=== PATIENT | female | born 2000 | race Caucasian/White ===

== ENCOUNTER 2019-11-19 00:01 | Emergency (ER) | payer BC, SELFPAY ==
[2019-11-19 00:26] VITALS: BP 117/79; PULSE 102; RESP 16; TEMP 36.5; O2SAT 98; BMI 25.6
--- NOTE | 2019-11-19 00:54 | ED_ITS ---
Entered by Katerina Reaves, acting as scribe for Cesilia Kong Nov 19, 2019 00:01 HPI - Nausea/Vomiting/Diarrhea General: Chief complaint: Nausea/Vomiting/Diarrhea Stated complaint: NAUSEA Time Seen by Provider: 11/19/19 00:53 Source: patient Mode of arrival: ambulatory History of Present Illness: HPI Narrative: 19y/o female presents to the ED with complaint of N/V since 2015 this evening. Pt denies any sick contacts. She denies any abd pain or cramping. MD elicited complaint: nausea and vomiting Onset (ago): hour(s) Associated abdominal pain: No Severity: mild Exacerbating factors: vomiting and movement Relieving factors: none Associated symtoms: Denies altered mental status, change in vision, chest pain, diaphoresis, dizziness, dysuria, fatigue, headache(s), malaise, palpitations or syncope Review of Systems General: Reports: other (negative unless marked) Const: Denies: fever, chills, body aches, fatigue, malaise or diaphoresis Eyes: Denies: change in vision or blurry vision ENMT: Denies: throat pain, painful swallowing, hoarseness, ear pain, ear discharge, Change in hearing or nasal discharge Card: Denies: chest pain, palpitations, irregular heart rhythm, syncope, pre- syncope, shortness of breath on exertion or shortness of breath when lying down Resp: Denies: shortness of breath, productive cough, non-productive cough, wheezing, coughing up blood or chest congestion : Denies: flank pain, painful urination, urinary frequency, urinary urgency, decreased urine ouput, urinary incontinence or blood in urine Musc: Denies: neck pain, back pain, extremity pain, extremity swelling, joint pain, joint swelling, joint warmth or joint stiffness Skin/Breast: Denies: rash, skin tenderness or yellow skin Neuro: Denies: headache, numbness in extremities, weakness in extremities, changes in sensation, lack of coordination, difficulty walking, dizziness, vertigo or confusion Endo: Denies: excessive thirst, tired all the time, cold intolerance, excessive sweating, flushing or hot flashes Lon/Lymph: Denies: easy bruising, easy bleeding, petechiae or enlarged lymph nodes All/Imm: Denies: hives, throat swelling, tongue swelling, facial swelling or acute wheezing PFSH ED PFSH: Social History Smoking and tobacco status: current some day smoker Female Reproductive History: Date of last menstrual period: 11/03/19 Physical Exam Const: EXAM LIMITATIONS: no altered mental status GENERAL APPEARANCE: cooperative, well kempt and well developed ORIENTATION/CONSCIOUSNESS: Yes awake HENMT: COMMON NORMALS: normocephalic, head/scalp atraumatic, hearing grossly normal bilaterally, external ears normal, EAC's normal, external nose normal and moist oral mucous membranes HEAD & SCALP: normal to inspection, normocephalic and atraumatic FACE & SINUS: normal facial exam and face symmetric NOSE: external nose normal and nares normal EXTERNAL EAR: Yes external ears normal EXTERNAL AUDITORY CANAL: EAC's normal MOUTH: oral and palatal mucosa normal and tongue normal Eye: COMMON NORMALS: PERRL, EOMs intact bilaterally, conjunctivae normal and no scleral icterus GENERAL EYE: normal appearance of both eyes and normal light reflex CONJUNCTIVA: Yes conjunctivae normal SCLERA: sclerae normal CORNEA: Yes corneas normal PUPIL: Yes PERRL DIRECT OPHTHALMOSCOPY: Yes normal light reflex Neck/C-Spine: COMMON NORMALS: full ROM, no lymphadenopathy, supple, no meningeal signs and no JVD GENERAL: Yes normal visual inspection and Yes trachea midline CERVICAL SPINE: Yes cervical ROM normal Chest: COMMONS NORMALS: inspection of chest normal and palpation of chest normal Resp: COMMON NORMALS: normal respiratory effort, no retractions, no use of accessory muscles and clear to auscultation bilaterally EFFORT & INSPECTION: Yes able to speak in complete sentences AUSCULTATION: clear to auscultation bilaterally Cardio: COMMON NORMALS: no JVD, regular rate, regular rhythm, S1 normal heart sound, S2 normal heart sound, no gallops, no clicks, no murmurs and no rub JUGULAR VENOUS DISTENTION: no JVD RATE: regular rate RHYTHM: regular rhythm HEART SOUNDS: S1 normal and S2 normal GI: COMMON NORMALS: soft to palpation, non-tender, no hepatosplenomegaly and no masses INSPECTION: Yes normal to inspection PALPATION: Yes soft and Yes no hepatosplenomegaly : COMMON NORMALS: Yes no CVA tenderness BLADDER/KIDNEY EXAM: Yes no CVA tenderness Back/Pelvis: COMMON NORMALS: no CVA tenderness, thoracic and lumbar spine normal to inspection, no thoracic nor lumbar tenderness and thoraco-lumbar ROM normal Extremity: COMMON NORMALS: normal to inspection, full ROM, normal capillary refill, no joint enlargement, no clubbing, cyanosis or edema and no calf tenderness Neuro: COMMON NORMALS: CN's II-XII intact bilaterally, moves all extremities, no focal motor deficits and no sensory deficits noted MENINGEAL SIGNS: Yes no meningeal signs Psych: COMMON NORMALS: mental status grossly normal, thought process normal, cooperative, affect normal and speech normal APPEARANCE: Yes well kempt SPEECH: Yes normal speech THOUGHT PROCESS: normal thought process Skin: COMMON NORMALS: no rashes or lesions noted, skin turgor normal, no jaundice, no petechiae and no mottling GENERAL SKIN EXAM: no rashes or lesions noted and turgor normal Course Vital Signs: Vital signs: Vital Signs Temperature 97.7 F 11/19/19 00:26 Pulse Rate 95 11/19/19 03:18 Respiratory Rate 16 11/19/19 03:18 Blood Pressure 110/60 11/19/19 03:18 Pulse Oximetry 99 11/19/19 03:18 MDM - Nausea/Vomiting/Diarrhea MDM Narrative: Medical decision making narrative: Veronique is a 19-year-old female who comes in complaining of vomiting. She denies having any other symptoms but later has says she has a mild headache. Her headache is resolved with Tylenol. She only has minimal nausea at this time. She still has no abdominal pain on exam or by subjective complaint. She states she is feeling better and wants to go home. She does agree to return should her symptoms change or worsen. I see no sign of meningitis, appendicitis or other acute life-threatening problem. The patient does agree to return should her symptoms change or worsen. Lab Data: Attestation: I reviewed the patient's lab results. Labs: Lab Results 11/19/19 11/19/19 11/19/19 Range/Units 00:44 00:44 00:44 WBC 8.4 (4.5-13.0) 10^3/ uL RBC 4.54 (4.1-5.3) 10^6/u L Hgb 12.7 (11.5-15.3) g/dL Hct 39.1 (37.0-47.0) % MCV 86.1 (81-99) fL MCH 28.0 (28.0-34.0) pg MCHC 32.5 (30.0-36.0) g/dL RDW 12.6 (12.1-15.1) % Plt Count 267 (130-400) 10^3/c mm MPV 10.5 H (7.4-10.4) fL Neut % (Auto) 74.5 % Lymph % (Auto) 16.7 % Harmon % (Auto) 4.6 % Eos % (Auto) 3.1 % Baso % (Auto) 0.7 % Neut # (Auto) 6.3 (1.8-8.0) 10^3/u L Lymph # (Auto) 1.4 L (1.5-6.5) 10^3/u L Harmon # (Auto) 0.4 (0.2-0.9) 10^3/u L Eos # (Auto) 0.3 (0.0-0.8) 10^3/u L Baso # (Auto) 0.1 (0.0-0.1) 10^3/u L Nucleated RBC % (a uto) 0 % Nucleated RBCs # 0.0 /100WBC Sodium 138 (136-145) mmol/L Potassium 3.7 (3.5-5.1) mmol/L Chloride 104 (98-107) mmol/L Carbon Dioxide 20 L (22-29) mmol/L Anion Gap 17.7 (5-19) BUN 14 (6-20) mg/dL Creatinine 0.5 (0.5-0.9) mg/dL GFR Calculation 157.3 H (90-130) mL/min Glucose 141 H (65-115) mg/dL Calcium 10.0 (8.5-10.5) mg/dL Total Bilirubin 1.3 H (0.15-1.2) mg/dL AST 15 (0-32) U/L ALT 15 (0-33) U/L Alkaline Phosphata se 47 (35-105) IU/L Total Protein 7.6 (6.6-8.7) g/dL Albumin 4.1 (3.5-5.2) g/dL Globulin 3.5 (1.3-4.6) g/dL Lipase 13 (13-60) U/L HCG, Qual Negative (Negative) Urine Color (Yellow) Urine Appearance (CLEAR) Urine pH (5-7) Ur Specific Gravit y (1.005-1.030) Urine Protein (Negative) Urine Glucose (UA) (Normal) Urine Ketones (Negative) Urine Occult Blood (Negative) Urine Nitrate (Negative) Urine Bilirubin (NEGATIVE) Urine Urobilinogen (Negative) mg/dL Ur Leukocyte Kimberly ase (Negative) Urine RBC (0-2) /hpf Urine WBC (0-5) /hpf Ur Squamous Epith Cells (0-5) Amorphous Sediment Urine Bacteria (NONE) Urine Mucus 11/19/19 Range/Units 01:30 WBC (4.5-13.0) 10^3/ uL RBC (4.1-5.3) 10^6/u L Hgb (11.5-15.3) g/dL Hct (37.0-47.0) % MCV (81-99) fL MCH (28.0-34.0) pg MCHC (30.0-36.0) g/dL RDW (12.1-15.1) % Plt Count (130-400) 10^3/c mm MPV (7.4-10.4) fL Neut % (Auto) % Lymph % (Auto) % Harmon % (Auto) % Eos % (Auto) % Baso % (Auto) % Neut # (Auto) (1.8-8.0) 10^3/u L Lymph # (Auto) (1.5-6.5) 10^3/u L Harmon # (Auto) (0.2-0.9) 10^3/u L Eos # (Auto) (0.0-0.8) 10^3/u L Baso # (Auto) (0.0-0.1) 10^3/u L Nucleated RBC % (a uto) % Nucleated RBCs # /100WBC Sodium (136-145) mmol/L Potassium (3.5-5.1) mmol/L Chloride (98-107) mmol/L Carbon Dioxide (22-29) mmol/L Anion Gap (5-19) BUN (6-20) mg/dL Creatinine (0.5-0.9) mg/dL GFR Calculation (90-130) mL/min Glucose (65-115) mg/dL Calcium (8.5-10.5) mg/dL Total Bilirubin (0.15-1.2) mg/dL AST (0-32) U/L ALT (0-33) U/L Alkaline Phosphata se (35-105) IU/L Total Protein (6.6-8.7) g/dL Albumin (3.5-5.2) g/dL Globulin (1.3-4.6) g/dL Lipase (13-60) U/L HCG, Qual (Negative) Urine Color Yellow (Yellow) Urine Appearance Hazy A (CLEAR) Urine pH 7 (5-7) Ur Specific Gravit y 1.015 (1.005-1.030) Urine Protein Neg (Negative) Urine Glucose (UA) Norm (Normal) Urine Ketones 1+ H (Negative) Urine Occult Blood 2+ H (Negative) Urine Nitrate Negative (Negative) Urine Bilirubin Neg (NEGATIVE) Urine Urobilinogen Norm (Negative) mg/dL Ur Leukocyte Kimberly ase Negative (Negative) Urine RBC 0-4 H (0-2) /hpf Urine WBC 0-4 H (0-5) /hpf Ur Squamous Epith Cells 0-4 H (0-5) Amorphous Sediment 1+ Urine Bacteria 1+ H (NONE) Urine Mucus 1+ Discharge Plan Discharge Patient Disposition: Home, Self-Care Clinical Impression: Dehydration Vomiting Qualifiers: Vomiting type: unspecified Vomiting Intractability: non-intractable Nausea presence: with nausea Qualified Code(s): R11.2 - Nausea with vomiting, unspecified Condition: Stable Prescriptions: New Zofran 4 mg tablet 4 mg PO DAILY PRN (Reason: nausea and vomiting) 5 Days RF: 0 Discharge Orders: Discharge Order (Routine); Ordered 11/19/19 Ordered By: Cesilia Kong Referrals: Loraine Mccord MD [Physician] - 1-3 days Discharge Diet: Advance as tolerated Discharge Activity: Increase activity as tolerated Patient Instructions: Gastroenteritis (ED), Abdominal Pain (ED), Vomiting - Adult Activity Restrictions/Additional Instructions: Please return to the ER immediately for any of the signs or symptoms listed on your discharge instruction sheets, worsening/changing of your symptoms, you are not getting better as quickly as expected, or for ANY other cause or concerns. You have been offered further evaluation and care here but have declined. If your symptoms return, you develop abdominal pain, develop fever or any other symptoms please return to the ER immediately for recheck. Discharge Date/Time: 11/19/19 03:19 Coding Level of Care Code ED Biological Plant Operator for Chg Fwd Exam Comprehensive The documentation recorded by the ashlynibJean Paul dunlap Ashley, accurately reflects the service I personally performed and the decisions made by Dilan murrell Eli N Nov 19, 2019 00:01
[2019-11-19 00:55] VITALS: BP 142/89; PULSE 120; RESP 16; O2SAT 100
[2019-11-19 01:05] VITALS: BP 137/85; PULSE 120; RESP 16; O2SAT 100
[2019-11-19 01:14] LABS: Basophils # 0.1 10^3/uL (0.0-0.1); Basophils % 0.7 %; Eosinophils # 0.3 10^3/uL (0.0-0.8); Eosinophils % 3.1 %; Hematocrit 39.1 % (37.0-47.0); Hemoglobin 12.7 g/dL (11.5-15.3); Lymphocytes # 1.4 10^3/uL (1.5-6.5); Lymphocytes % 16.7 %; Mean Corpuscular HGB Conc 32.5 g/dL (30.0-36.0); Mean Corpuscular Volume 86.1 fL (81-99); Mean Platelet Volume 10.5 fL (7.4-10.4); Monocytes # 0.4 10^3/uL (0.2-0.9); Monocytes % 4.6 %; Neutrophils # 6.3 10^3/uL (1.8-8.0); Neutrophils % 74.5 %; Nucleated Red Blood Cells % 0 %; Platelet Count 267 10^3/cmm (130-400); Red Blood Count 4.54 10^6/uL (4.1-5.3); Red Cell Distribution Width 12.6 % (12.1-15.1); White Blood Count 8.4 10^3/uL (4.5-13.0)
[2019-11-19 01:17] LABS: HCG, Serum Qual Negative (Negative)
[2019-11-19 01:21] LABS: Alanine Aminotransferase 15 U/L (0-33); Albumin Level 4.1 g/dL (3.5-5.2); Alkaline Phosphatase 47 IU/L (35-105); Anion Gap 17.7 (5-19); Aspartate Amino Transferase 15 U/L (0-32); Blood Urea Nitrogen 14 mg/dL (6-20); Carbon Dioxide 20 mmol/L (22-29); Chloride 104 mmol/L (98-107); Creatinine Clr Calc Pharmacy 157.1401; Globulin 3.5 g/dL (1.3-4.6); Glomerular Filtration Rate 157.3 mL/min (90-130); Glucose 141 mg/dL (65-115); Lipase 13 U/L (13-60); Potassium 3.7 mmol/L (3.5-5.1); Sodium 138 mmol/L (136-145); Total Bilirubin 1.3 mg/dL (0.15-1.2); Total Protein 7.6 g/dL (6.6-8.7)
[2019-11-19] MEDS: acetaminophen 500 mg Tablet 1000 MG PO (01:26)
[2019-11-19 02:00] VITALS: BP 108/68; PULSE 103; RESP 16; O2SAT 100
[2019-11-19 02:20] LABS: Bilirubin Urine Neg (NEGATIVE); Blood Urine 2+ (Negative); Glucose Urine UA Norm (Normal); Ketones Urine 1+ (Negative); Leukocyte Esterase Urine Negative (Negative); Nitrate Urine Negative (Negative); Protein Urine Neg (Negative); Specific Gravity, Urine 1.015 (1.005-1.030); Urine Appearance Hazy (CLEAR); Urine Color Yellow (Yellow); Urobilinogen Urine Norm (Negative); pH Urine 7 (5-7)
[2019-11-19 02:21] LABS: Bacteria Urine 1+; RBC Urine 0-4 /hpf (0-2); Squamous Epithelial Cell Urine 0-4 (0-5); WBC Urine 0-4 /hpf (0-5)
[2019-11-19 02:22] LABS: Add Urine Culture? No; Amorphous Sediment Urine 1+; Mucus Urine 1+
[2019-11-19 02:30] VITALS: BP 103/59; PULSE 78; RESP 16; O2SAT 99
[2019-11-19] MEDS: metoclopramide 5 mg/mL SDV 2 mL 10 MG IVP (02:45)
[2019-11-19] MEDS: ketorolac 30 mg/mL INJ 10 MG IVP (02:46)
[2019-11-19 03:18] VITALS: BP 110/60; PULSE 95; RESP 16; O2SAT 99
== END 2019-11-19 03:19 | disposition home or self-care (01) ==
PROVIDERS: Emergency Provider Emergency Medicine
DX: E86.0 Dehydration (principal); R11.10 Vomiting, unspecified; F17.200 Nicotine dependence, unspecified, uncomplicated
CPT/HCPCS: 27256; 80053; 81001; 83690; 84703; 85025; 96374; 96375; 99282; 99283; A9270; J1885; J2765

== ENCOUNTER 2019-11-23 10:52 | Emergency (ER) | payer BC, SELFPAY ==
--- NOTE | 2019-11-23 10:53 | XR_ITS ---
WS: [id number] XR chest 2V* [id number] REASON FOR EXAM: cp FINDINGS: The heart and mediastinal interfaces are normal. The chest is similar to March 03, 2018. The lung mcgregor are well aerated no pneumonia, pulmonary edema, pleural effusion, or mass effect. No osseous abnormalities. The hilum and apices are normal. There is no evidence of pneumothorax. XR/XR chest 2V* [id number] IMPRESSION: Negative chest for acute pathology.
--- NOTE | 2019-11-23 10:53 | ECG_ITS ---
Measurements Intervals [place] Rate: 71 P: 56 [place]: 148 QRS: 67 QRSD: 90 T: 74 QT: 361 QTc: 395 SINUS RHYTHM WITH SINUS ARRHYTHMIA INTERPRETATION BASED ON A DEFAULT AGE OF 40 YEARS No previous ECG available for comparison Electronically Signed On 11-23-2019 19:05:57 INSURANCE ACCOUNT ASSISTANT by Grace Zee M.[email or web address]
[2019-11-23 10:57] VITALS: BP 138/82; PULSE 75; RESP 18; TEMP 36.8; O2SAT 98; BMI 26.5
[2019-11-23 11:01] VITALS: PULSE 91; RESP 16; O2SAT 99
--- NOTE | 2019-11-23 11:06 | ED_ITS ---
Entered by Candi Madrigal, acting as scribe for Bubba Martin MD, [facility] [place] Nov 23, 2019 10:52 HPI - Chest Pain General: Chief Complaint: Chest Pain Stated Complaint: CP yesterday-none now Time Seen by Provider: 11/23/19 11:06 Source: patient Mode of arrival: ambulatory Limitations: no limitations History of Present Illness: HPI narrative: 19 yo Female presents to ED with complaint of chest pain and shortness of breath. Pt states that it started about 08:30 yesterday morning. Pt states that it went on through the day yesterday and last night. Pt states that she woke up fine this morning but then had another episode. Pt states that she thinks maybe she had a panic attack. Pt states that she has pain in the center of her chest and it doesn't move. Pt describes the pain as pressure, like someone is sitting on her chest. Pt states that she came in to be checked out because she has a family history of cardiac issues. Pt states that she doesn't have any chest pain at this time. Pt's family states that the patient was in the ED on Wednesday with nausea, confusion, and headache. Pt's family states that patient has felt worse on days that she works. 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 Pt states that on Wednesday she mostly came in because of numbness in her arm. She is concerned about carbon monooxide poisoning. complaint: chest pain Onset (ago): day(s) Timing of current episode: episodic and still present Prior episodes: Yes Onset: during rest Pain location: substernal Pain radiation: none Pain scale (0-10): 0 Quality: heaviness Relieving factors: nothing Exacerbating factors: nothing Associated symptoms: Reports dyspnea; Deny abdominal pain, fever(s), nausea, palpitations or vomiting Review of Systems General: Reports: 10 or more systems reviewed and unremarkable except in HPI and below Const: Denies: fever, chills or body aches Eyes: Denies: change in vision or blurry vision ENMT: Denies: throat pain, enlarged tonsils, painful swallowing, hoarseness, mouth pain or swelling of lips/tongue Card: Reports: chest pain; Denies: palpitations, irregular heart rhythm, edema or swelling of feet/ankles Resp: Reports: shortness of breath; Denies: productive cough or non-productive cough GI: Denies: abdominal pain, nausea or vomiting : Denies: flank pain, difficulty urinating, painful urination, urinary frequency, urinary urgency or urinary hesitancy Musc: Denies: neck pain, back pain or extremity swelling Skin/Breast: Denies: rash, itching or redness Neuro: Denies: headache, numbness in extremities or weakness in extremities Endo: Denies: excessive urination, excessive thirst or tired all the time PFSH ED PFSH: Social History Smoking and tobacco status: former smoker Female Reproductive History: Date of last menstrual period: 11/23/19 Physical Exam Const: COMMON NORMALS: no apparent distress, average body habitus, oriented x3, no limitations, healthy appearing, alert and well nourished HENMT: COMMON NORMALS: normocephalic, head/scalp atraumatic and moist oral mucous membranes HEAD & SCALP: normocephalic and atraumatic Eye: COMMON NORMALS: PERRL, EOMs intact bilaterally, conjunctivae normal and no scleral icterus CONJUNCTIVA: Yes conjunctivae normal PUPIL: Yes PERRL Neck/C-Spine: COMMON NORMALS: full ROM, supple, no meningeal signs, no JVD and no carotid bruits Chest: COMMONS NORMALS: inspection of chest normal and palpation of chest normal Resp: COMMON NORMALS: normal respiratory effort, no retractions, no use of accessory muscles, clear to auscultation bilaterally and percussion normal AUSCULTATION: clear to auscultation bilaterally PERCUSSION: percussion normal Cardio: COMMON NORMALS: no JVD, regular rate, regular rhythm, S1 normal heart sound, S2 normal heart sound, no gallops, no clicks, no murmurs, no rub and peripheral pulses 2+ throughout RATE: regular rate RHYTHM: regular rhythm HEART SOUNDS: S1 normal and S2 normal PERIPHERAL PULSES: pulses 2+ throughout GI: COMMON NORMALS: normal to inspection, nondistended, normoactive bowel sounds, soft to palpation, non-tender, no hepatosplenomegaly, no masses and no bruits PALPATION: Yes soft and Yes no hepatosplenomegaly : COMMON NORMALS: Yes no CVA tenderness BLADDER/KIDNEY EXAM: Yes no CVA tenderness Back/Pelvis: COMMON NORMALS: no CVA tenderness Extremity: COMMON NORMALS: normal to inspection, full ROM, normal capillary refill, no calf tenderness and no pedal edema Neuro: COMMON NORMALS: oriented x3 SENSORIUM/ORIENTATION: Yes alert MENINGEAL SIGNS: Yes no meningeal signs Skin: COMMON NORMALS: no rashes or lesions noted, no wounds, skin turgor normal, no jaundice, no petechiae and no mottling GENERAL SKIN EXAM: no rashes or lesions noted and turgor normal Course Reevaluation(s): Reevaluation #1: Discussed her lab and imaging findings with her. Negative other than an elevated bilirubin. She is uncertain if she has any gallbladder disease although she says she has had some right upper quadrant pain in the past. We will obtain an ultrasound of her gallbladder and reevaluate. She voiced understanding and is in agreement with the plan Time: 13:01 Reevaluation #2: Discussed her ultrasound findings with her. Gallbladder without acute findings. She has fatty liver. Advised for her to discuss with her primary care provider, as she probably will need statins. She voiced understanding. We will discharge her home with no new orders. She was in agreement with this plan. Time: 14:26 Vital Signs: Vital signs: Vital Signs Temperature 98.2 F 11/23/19 10:57 Pulse Rate 75 11/23/19 10:57 Respiratory Rate 18 11/23/19 10:57 Blood Pressure 138/82 11/23/19 10:57 Pulse Oximetry 98 11/23/19 10:57 MDM - Chest Pain MDM Narrative: Medical decision making narrative: 19-year-old female patient who presented with chest pain today. She says her symptoms are only there when she is at work. She was concerned about carbon monoxide poisoning. Her carboxyhemoglobin here is normal. Evaluation unremarkable including negative high-sensitivity troponin x2. She is discharged home with no new orders. Lab Data: Labs: Lab Results 11/23/19 11/23/19 11/23/19 Range/Units 11:33 11:39 11:39 WBC 7.3 (4.5-13.0) 10^3/ uL RBC 4.79 (4.1-5.3) 10^6/u L Hgb 13.7 (11.5-15.3) g/dL Hct 41.0 (37.0-47.0) % MCV 85.6 (81-99) fL MCH 28.6 (28.0-34.0) pg MCHC 33.4 (30.0-36.0) g/dL RDW 12.8 (12.1-15.1) % Plt Count 309 (130-400) 10^3/c mm MPV 10.5 H (7.4-10.4) fL Neut % (Auto) 60.3 % Lymph % (Auto) 25.8 % Lassen % (Auto) 6.0 % Eos % (Auto) 6.7 % Baso % (Auto) 0.8 % Neut # (Auto) 4.4 (1.8-8.0) 10^3/u L Lymph # (Auto) 1.9 (1.5-6.5) 10^3/u L Lassen # (Auto) 0.4 (0.2-0.9) 10^3/u L Eos # (Auto) 0.5 (0.0-0.8) 10^3/u L Baso # (Auto) 0.1 (0.0-0.1) 10^3/u L Nucleated RBC % (a uto) 0 % Nucleated RBCs # 0.0 /100WBC D-Dimer 0.55 (0-0.59) ug/mIFE U Specimen Type Arterial Sample Site Radial, left Con Test Pos A-a O2 Gradient 4.1 L (5-10) mmHg Hematocrit 43.1 (37-47) % Hgb O2 Saturation 98.4 (95-100) % Carboxyhemoglobin 0.4 (0.4-20.1) %THgb Methemoglobin 0.3 L (0.4-1.5) % Total Hemoglobin 14.1 (12-16) g/dL O2 Delivery Device Room air Cargo Supervisor ID [id number] Sodium (136-145) mmol/L Potassium (3.5-5.1) mmol/L Chloride (98-107) mmol/L Carbon Dioxide (22-29) mmol/L Anion Gap (5-19) BUN (6-20) mg/dL Creatinine (0.5-0.9) mg/dL GFR Calculation (90-130) mL/min Glucose (65-115) mg/dL Calcium (8.5-10.5) mg/dL Total Bilirubin (0.15-1.2) mg/dL AST (0-32) U/L ALT (0-33) U/L Alkaline Phosphata se (35-105) IU/L Troponin T Baselin e (0-10) ng/mL Troponin T 120 Min [place] (0-10) ng/mL Delta Troponin T (0-10) ABS# Total Protein (6.6-8.7) g/dL Albumin (3.5-5.2) g/dL Globulin (1.3-4.6) g/dL 11/23/19 11/23/19 11/23/19 Range/Units 11:39 11:39 13:45 WBC (4.5-13.0) 10^3/ uL RBC (4.1-5.3) 10^6/u L Hgb (11.5-15.3) g/dL Hct (37.0-47.0) % MCV (81-99) fL MCH (28.0-34.0) pg MCHC (30.0-36.0) g/dL RDW (12.1-15.1) % Plt Count (130-400) 10^3/c mm MPV (7.4-10.4) fL Neut % (Auto) % Lymph % (Auto) % Lassen % (Auto) % Eos % (Auto) % Baso % (Auto) % Neut # (Auto) (1.8-8.0) 10^3/u L Lymph # (Auto) (1.5-6.5) 10^3/u L Lassen # (Auto) (0.2-0.9) 10^3/u L Eos # (Auto) (0.0-0.8) 10^3/u L Baso # (Auto) (0.0-0.1) 10^3/u L Nucleated RBC % (a uto) % Nucleated RBCs # /100WBC D-Dimer (0-0.59) ug/mIFE U Specimen Type Sample Site Con Test A-a O2 Gradient (5-10) mmHg Hematocrit (37-47) % Hgb O2 Saturation (95-100) % Carboxyhemoglobin (0.4-20.1) %THgb Methemoglobin (0.4-1.5) % Total Hemoglobin (12-16) g/dL O2 Delivery Device Cargo Supervisor ID Sodium 141 (136-145) mmol/L Potassium 3.9 (3.5-5.1) mmol/L Chloride 104 (98-107) mmol/L Carbon Dioxide 24 (22-29) mmol/L Anion Gap 16.9 (5-19) BUN 8 (6-20) mg/dL Creatinine 0.5 (0.5-0.9) mg/dL GFR Calculation 157.3 H (90-130) mL/min Glucose 107 (65-115) mg/dL Calcium 10.1 (8.5-10.5) mg/dL Total Bilirubin 1.6 H (0.15-1.2) mg/dL AST 13 (0-32) U/L ALT 13 (0-33) U/L Alkaline Phosphata se 51 (35-105) IU/L Troponin T Baselin e 6 (0-10) ng/mL Troponin T 120 Min [place] 6.00 (0-10) ng/mL Delta Troponin T 0 (0-10) ABS# Total Protein 7.5 (6.6-8.7) g/dL Albumin 4.5 (3.5-5.2) g/dL Globulin 3.0 (1.3-4.6) g/dL Imaging Data^: CXR: Radiologist's impression: [address] [address] XRay Report Signed Patient: Veronique Padilla #: [id number] : 2000Acct#:[id number] Age/Sex: 19 FADM Date: 11/23/19 Loc: ERRoom/Bed: Attending Dr: Ordering Provider/Ordering MD: Carlos Crane MD Date of Service: 11/23/19 Procedure(s): XR chest 2V* 15763 Accession Number(s): [id number] Report Number: [id number] WS: [id number] XR chest 2V* [id number] REASON FOR EXAM: cp FINDINGS: The heart and mediastinal interfaces are normal. The chest is similar to March 03, 2018. The lung mcgregor are well aerated no pneumonia, pulmonary edema, pleural effusion, or mass effect. No osseous abnormalities. The hilum and apices are normal. There is no evidence of pneumothorax. XR/XR chest 2V* [id number] IMPRESSION: Negative chest for acute pathology. Dictated By:Rashad Turpin DO Signed By:Rashad Turpin DOSigned Date/Time:11/23/19 1133 DD/ 1132 US Gallbladder: Radiologist's impression: [address] [address] Ultrasound Report Signed Patient: Veronique Padilla #: [id number] : 2000Acct#:[id number] Age/Sex: Date: 11/23/19 Loc: ERRoom/Bed: Attending Dr: Ordering Provider/Ordering MD: Bubba Martin MD, [facility] [place] of Service: 11/23/19 Procedure(s): US gall bladder 78364 Accession Number(s): [id number] Report Number: [id number] WS: [id number] ABDOMINAL ULTRASOUND LIMITED REASON FOR VISIT: hyperbilirubinemia TECHNIQUE: Grayscale and Doppler ultrasound examination of the abdomen. FINDINGS: Pancreas: Within normal limits. Abdominal aorta and IVC: Normal limits. Liver: Liver measures 12.7 cm in length. Fatty infiltration present Gallbladder: Gallbladder wall thickness measures 2.2 mm. No stones or polyps. Common bile duct measures 0.24 cm no stones. Right kidney: Right kidney measures 11.5 cm x 4.2 cm x 4.8 cm. Right kidney cortex measures 1.4 cm. No hydronephrosis or stones. US/US gall bladder [id number] IMPRESSION: Fatty infiltration of the liver The remaining right upper quadrant within normal limits. Dictated By:Rashad Turpin DO Signed By:Rashad Turpin DOSigned Date/Time:11/23/19 1349 DD/ 1346 EKG Data^: EKG 1: Attestation: I personally reviewed and interpreted this EKG as follows: EKG interpretation date: 11/23/19 Prior EKG tracings: not available for review Interpretation: Sinus rhythm with sinus arrhythmia. Heart rate 71 bpm. Normal axis. No ST changes. EKG 2: Attestation: I personally reviewed and interpreted this EKG as follows: EKG interpretation date: 11/23/19 EKG interpretation time: 13:54 Prior EKG tracings: available for review Interpretation: No changes compared to this morning Discharge Plan Discharge Patient Disposition: Home, Self-Care Clinical Impression: Fatty liver Chest pain Qualifiers: Chest pain type: other chest pain Qualified Code(s): R07.89 - Other chest pain Condition: Stable Prescriptions: Continued Xulane 150-35 mcg/24 hr patch weekly 1 patch transdermal Q7D RF: 0 Discharge Orders: Discharge Order (Routine); Ordered 11/23/19 Ordered By: Bubba Martin Referrals: , [Primary Care Provider] - 1-3 days Patient Instructions: Chest Pain (ED), Non-Alcoholic Fatty Liver Disease (ED) Activity Restrictions/Additional Instructions: Return for any new or worsening symptoms. Follow-up with your primary care provider within 1 week for evaluation. You may need to be started on cholesterol medicine for the fatty liver. Stand Alone Forms: Work/School Release Coding Level of Care Code ED Weighbridge Operator for Chg Fwd Exam Comprehensive The documentation recorded by the Kaitlin beltre Carmen, accurately reflects the service I personally performed and the decisions made by , Bubba Martin MD, [facility] [place] Nov 23, 2019 10:52
[2019-11-23 11:47] LABS: Alveolar-Arterial Oxygen Gradi 4.1 mmHg (5-10); Arterial Blood Gas Hematocrit 43.1 % (37-47); Blood Gas Allen Test Pos; Blood Gas Sample Site Radial, left; Blood Gas Sample Type Arterial; Carboxyhemoglobin 0.4 %THgb (0.4-20.1); HGB O2 Sat 98.4 % (95-100); Methemoglobin 0.3 % (0.4-1.5); Oxygen Device ROOM AIR; Total Hemoglobin 14.1 g/dL (12-16)
[2019-11-23 11:50] LABS: Basophils # 0.1 10^3/uL (0.0-0.1); Basophils % 0.8 %; Eosinophils # 0.5 10^3/uL (0.0-0.8); Eosinophils % 6.7 %; Hemoglobin 13.7 g/dL (11.5-15.3); Lymphocytes # 1.9 10^3/uL (1.5-6.5); Lymphocytes % 25.8 %; Mean Corpuscular HGB Conc 33.4 g/dL (30.0-36.0); Mean Corpuscular Hemoglobin 28.6 pg (28.0-34.0); Mean Corpuscular Volume 85.6 fL (81-99); Mean Platelet Volume 10.5 fL (7.4-10.4); Monocytes # 0.4 10^3/uL (0.2-0.9); Neutrophils # 4.4 10^3/uL (1.8-8.0); Neutrophils % 60.3 %; Nucleated Red Blood Cells % 0 %; Platelet Count 309 10^3/cmm (130-400); Red Blood Count 4.79 10^6/uL (4.1-5.3); Red Cell Distribution Width 12.8 % (12.1-15.1); White Blood Count 7.3 10^3/uL (4.5-13.0)
[2019-11-23 12:01] VITALS: PULSE 103; RESP 16; O2SAT 98
[2019-11-23 12:01] LABS: D Dimer 0.55 ug/mIFEU (0-0.59)
[2019-11-23 12:07] LABS: Troponin(5th) Baseline 6 ng/mL (0-10)
[2019-11-23 12:09] LABS: Alanine Aminotransferase 13 U/L (0-33); Albumin Level 4.5 g/dL (3.5-5.2); Alkaline Phosphatase 51 IU/L (35-105); Anion Gap 16.9 (5-19); Aspartate Amino Transferase 13 U/L (0-32); Blood Urea Nitrogen 8 mg/dL (6-20); Calcium 10.1 mg/dL (8.5-10.5); Carbon Dioxide 24 mmol/L (22-29); Chloride 104 mmol/L (98-107); Glomerular Filtration Rate 157.3 mL/min (90-130); Glucose 107 mg/dL (65-115); Potassium 3.9 mmol/L (3.5-5.1); Sodium 141 mmol/L (136-145); Total Bilirubin 1.6 mg/dL (0.15-1.2); Total Protein 7.5 g/dL (6.6-8.7)
--- NOTE | 2019-11-23 12:59 | US_ITS ---
WS: [id number] ABDOMINAL ULTRASOUND LIMITED REASON FOR VISIT: hyperbilirubinemia TECHNIQUE: Grayscale and Doppler ultrasound examination of the abdomen. FINDINGS: Pancreas: Within normal limits. Abdominal aorta and IVC: Normal limits. Liver: Liver measures 12.7 cm in length. Fatty infiltration present Gallbladder: Gallbladder wall thickness measures 2.2 mm. No stones or polyps. Common bile duct measures 0.24 cm no stones. Right kidney: Right kidney measures 11.5 cm x 4.2 cm x 4.8 cm. Right kidney cortex measures 1.4 cm. N o hydronephrosis or stones. US/US gall bladder 54941 IMPRESSION: Fatty infiltration of the liver The remaining right upper quadrant within normal limits.
[2019-11-23 13:01] VITALS: PULSE 81; RESP 18; O2SAT 100
--- NOTE | 2019-11-23 13:22 | ECG_ITS ---
Measurements Intervals [place] Rate: 68 P: 59 WV: 155 QRS: 68 QRSD: 93 T: 72 QT: 397 QTc: 424 SINUS RHYTHM WITH SINUS ARRHYTHMIA No previous ECG available for comparison Electronically Signed On 11-23-2019 19:12:47 EQUIPMENT OPERATOR WAGE HAND by Grace Zee M.D. [email or web address]
[2019-11-23 14:17] LABS: Troponin 5 2HR Delta 0 ABS# (0-10)
[2019-11-23 15:36] VITALS: BP 128/88; PULSE 84; RESP 16; TEMP 36.9; O2SAT 96
== END 2019-11-23 15:20 | disposition home or self-care (01) ==
PROVIDERS: Emergency Provider Family Medicine
DX: K76.0 Fatty (change of) liver, not elsewhere classified (principal); R07.9 Chest pain, unspecified; Z87.891 Personal history of nicotine dependence; Z82.49 Family history of ischemic heart disease and other diseases of the circulatory system
CPT/HCPCS: 36415; 36600; 71046; 76705; 80053; 82810; 84484; 85025; 85378; 93005; 99282; 99284

== ENCOUNTER 2020-03-06 08:22 | Emergency (ER) | payer BC, SELFPAY ==
[2020-03-06 08:30] VITALS: BP 128/78; PULSE 93; RESP 16; TEMP 37.1; O2SAT 98; BMI 25.6
--- NOTE | 2020-03-06 08:49 | ED_ITS ---
HPI - Abdominal Pain General: Chief Complaint: Abdominal Pain Stated Complaint: n/v/d Time Seen by Provider: 03/06/20 08:26 Source: patient Mode of arrival: ambulatory Limitations: no limitations History of Present Illness: HPI narrative: Patient comes in today for complaints of nausea and vomiting. Patient states that for the last 3 to 4 weeks she has had some right quadrant abdominal pain. Patient felt that it was her gallbladder. Patient states for the last 3 to 4 days she has woke up in the morning vomiting. Today she had to come in due to nausea vomiting and diarrhea worse for last 2 days. Patient appears mildly unwell. Patient appears in no pain at rest. MD elicited complaint: abdominal pain Associated Symptoms: Reports diarrhea, nausea and vomiting Related Data: Date of Last Menstrual Period: 02/06/20 Review of Systems General: Reports: 10 or more systems reviewed and unremarkable except in HPI and below GI: Reports: abdominal pain, nausea, vomiting and diarrhea PFS ED PFSH: Social History Smoking and tobacco status: never smoked Female Reproductive History: Date of last menstrual period: 02/06/20 Physical Exam Const: COMMON NORMALS: no acute distress and patient oriented x3 GENERAL APPEARANCE: cooperative HENMT: COMMON NORMALS: normocephalic, TM's normal bilaterally and Normal external nose present HEAD & SCALP: normal to inspection and normocephalic NOSE: Normal external nose present TYMPANIC MEMBRANE: TM's normal bilaterally MOUTH: Normal oral and palatal mucosa present THROAT: posterior oropharynx normal Eye: GENERAL EYE: appearance normal, both eyes and all related structures Neck/C-Spine: COMMON NORMALS: full ROM Lymph: LYMPHATIC: no lymphadenopathy noted Chest: COMMONS NORMALS: normal inspection of the chest Resp: COMMON NORMALS: normal respiratory effort EFFORT & INSPECTION: Yes able to speak in complete sentences Cardio: COMMON NORMALS: regular rate and regular rhythm RATE: regular rate RHYTHM: regular rhythm GI: COMMON NORMALS: Soft to palpation PALPATION: Yes Soft to palpation, Yes Tenderness to palpation present (GI) Details: RLQ, No Guarding due to palpation present (GI) and No Rebound tenderness present : COMMON NORMALS: Yes no CVA tenderness BLADDER/KIDNEY EXAM: Yes no CVA tenderness Back/Pelvis: COMMON NORMALS: no CVA tenderness and thoracic and lumbar spine normal to inspection Extremity: COMMON NORMALS: normal to inspection Neuro: COMMON NORMALS: patient oriented x3 and moves all extremities Psych: COMMON NORMALS: mental status grossly normal and cooperative Skin: COMMON NORMALS: no rashes or lesions noted GENERAL SKIN EXAM: no rashes or lesions noted Course ED course: 1040, ultrasound report showed that appendix was noncompressible which may be suggestive of a early appendicitis, patient was notified and we will send to CT for further evaluation. Patient reports understanding and agreed to plan. Vital Signs: Vital signs: Vital Signs Temperature 98.7 F 03/06/20 08:30 Pulse Rate 82 03/06/20 09:38 Respiratory Rate 16 03/06/20 08:30 Blood Pressure 101/71 03/06/20 09:38 Pulse Oximetry 100 03/06/20 09:38 MDM - Abdominal Pain MDM Narrative: Medical decision making narrative: Patient comes in today for right lower quadrant/abdominal pain. Patient states pains been on and off for the last 3 to 4 weeks, patient said over the last 2 to 3 days she has had worsening pain and episodes of nausea and vomiting. Patient denies fever. Exam notes right lower quadrant abdominal tenderness. Bowel sounds active. Differential diagnosis includes appendicitis, cholecystitis, gastroenteritis, urinary tract infection, renal calculi, or ovarian cyst. Laboratory values were significant for some mild hypokalemia with a 3.4 level. Remainder of the labs were insignificant. Ultrasound noticed a noncompressible appendix but without other signs of infection. CT scan was then performed and noted no appendicitis but did note a right ovarian cyst. Reviewed exam with patient with recommendations for treatment and follow-up. Patient reported understanding. Lab Data: Labs: Lab Results 03/06/20 03/06/20 03/06/20 Range/Units 08:45 08:45 08:45 WBC 7.5 (4.5-13.0) 10^3/ uL RBC 4.74 (4.1-5.3) 10^6/u L Hgb 13.7 (11.5-15.3) g/dL Hct 41.9 (37.0-47.0) % MCV 88.4 (81-99) fL MCH 28.9 (28.0-34.0) pg MCHC 32.7 (30.0-36.0) g/dL RDW 12.6 (12.1-15.1) % Plt Count 252 (130-400) 10^3/c mm MPV 10.5 H (7.4-10.4) fL Neut % (Auto) 58.9 % Lymph % (Auto) 22.7 % Randall % (Auto) 6.3 % Eos % (Auto) 10.5 % Baso % (Auto) 1.3 % Neut # (Auto) 4.4 (1.8-8.0) 10^3/u L Lymph # (Auto) 1.7 (1.5-6.5) 10^3/u L Randall # (Auto) 0.5 (0.2-0.9) 10^3/u L Eos # (Auto) 0.8 (0.0-0.8) 10^3/u L Baso # (Auto) 0.1 (0.0-0.1) 10^3/u L Nucleated RBC % (a uto) 0 % Nucleated RBCs # 0.0 /100WBC Sodium 141 (136-145) mmol/L Potassium 3.4 L (3.5-5.1) mmol/L Chloride 105 (98-107) mmol/L Carbon Dioxide 21 L (22-29) mmol/L Anion Gap 18.4 (5-19) BUN 13 (6-20) mg/dL Creatinine 0.5 (0.5-0.9) mg/dL GFR Calculation 157.3 H (90-130) mL/min Glucose 93 (65-115) mg/dL Calculated Osmolal ity 288 (285-295) mOsm/k g Calcium 10.2 (8.5-10.5) mg/dL Total Bilirubin 1.9 H (0.15-1.2) mg/dL AST 11 (0-32) U/L ALT 12 (0-33) U/L Alkaline Phosphata se 40 (35-105) IU/L Total Protein 7.5 (6.6-8.7) g/dL Albumin 4.5 (3.5-5.2) g/dL Globulin 3.0 (1.3-4.6) g/dL Lipase 18 (13-60) U/L Urine Color (Yellow) Urine Appearance (CLEAR) Urine pH (5-7) Ur Specific Gravit y (1.005-1.030) Urine Protein (Negative) Urine Glucose (UA) (Normal) Urine Ketones (Negative) Urine Blood (Negative) Urine Nitrate (Negative) Urine Bilirubin (NEGATIVE) Urine Urobilinogen (Negative) mg/dL Ur Leukocyte Kimberly ase (Negative) Urine HCG, Qual Negative (Negative) 03/06/20 Range/Units 08:45 WBC (4.5-13.0) 10^3/ uL RBC (4.1-5.3) 10^6/u L Hgb (11.5-15.3) g/dL Hct (37.0-47.0) % MCV (81-99) fL MCH (28.0-34.0) pg MCHC (30.0-36.0) g/dL RDW (12.1-15.1) % Plt Count (130-400) 10^3/c mm MPV (7.4-10.4) fL Neut % (Auto) % Lymph % (Auto) % Randall % (Auto) % Eos % (Auto) % Baso % (Auto) % Neut # (Auto) (1.8-8.0) 10^3/u L Lymph # (Auto) (1.5-6.5) 10^3/u L Randall # (Auto) (0.2-0.9) 10^3/u L Eos # (Auto) (0.0-0.8) 10^3/u L Baso # (Auto) (0.0-0.1) 10^3/u L Nucleated RBC % (a uto) % Nucleated RBCs # /100WBC Sodium (136-145) mmol/L Potassium (3.5-5.1) mmol/L Chloride (98-107) mmol/L Carbon Dioxide (22-29) mmol/L Anion Gap (5-19) BUN (6-20) mg/dL Creatinine (0.5-0.9) mg/dL GFR Calculation (90-130) mL/min Glucose (65-115) mg/dL Calculated Osmolal ity (285-295) mOsm/k g Calcium (8.5-10.5) mg/dL Total Bilirubin (0.15-1.2) mg/dL AST (0-32) U/L ALT (0-33) U/L Alkaline Phosphata se (35-105) IU/L Total Protein (6.6-8.7) g/dL Albumin (3.5-5.2) g/dL Globulin (1.3-4.6) g/dL Lipase (13-60) U/L Urine Color Yellow (Yellow) Urine Appearance Clear (CLEAR) Urine pH 5.0 (5-7) Ur Specific Gravit y 1.030 (1.005-1.030) Urine Protein Neg (Negative) Urine Glucose (UA) Norm (Normal) Urine Ketones 2+ H (Negative) Urine Blood Neg (Negative) Urine Nitrate Negative (Negative) Urine Bilirubin 1+ H (NEGATIVE) Urine Urobilinogen Norm (Negative) mg/dL Ur Leukocyte Kimberly ase Negative (Negative) Urine HCG, Qual (Negative) Discharge Plan Discharge Patient Disposition: Home, Self-Care Clinical Impression: Abdominal pain Qualifiers: Abdominal location: right lower quadrant Qualified Code(s): R10.31 - Right lower quadrant pain Ovarian cyst Qualifiers: Laterality: right Qualified Code(s): N83.201 - Unspecified ovarian cyst, right side Condition: Stable Prescriptions: New naproxen 500 mg tablet 500 mg PO BID PRN (Reason: pain) Qty: 20 RF: 0 ondansetron HCl 4 mg tablet 4 mg PO Q8H PRN (Reason: nausea and vomiting) Qty: 7 RF: 0 No Action Xulane 150-35 mcg/24 hr patch weekly 1 patch transdermal Q7D RF: 0 Discharge Orders: Discharge Order (Routine); Ordered 03/06/20 Ordered By: Kit Oliva Discharge Diet: Usual diet Discharge Activity: Increase activity as tolerated Patient Instructions: Abdominal Pain (ED) Activity Restrictions/Additional Instructions: Drink plenty of fluids. Activity as tolerated. Use ice or heat to the area for further pain relief. Use acetaminophen for further pain relief. Use naproxen as directed for ovarian pain. Drink plenty of water with medication. Follow-up with primary care or PROGRAMMER OPERATOR NUMERICAL CONTROL in 1 week for recheck on pain and further treatment as recommended. Return to the ER for high fever or worsening symptoms. Coding Level of Care Code ED Fairing Worker for Luisg Fwd Exam Comprehensive
[2020-03-06 08:57] LABS: Add Urine Microscopic? NO
[2020-03-06 08:59] LABS: Basophils # 0.1 10^3/uL (0.0-0.1); Basophils % 1.3 %; Eosinophils # 0.8 10^3/uL (0.0-0.8); Eosinophils % 10.5 %; Hematocrit 41.9 % (37.0-47.0); Hemoglobin 13.7 g/dL (11.5-15.3); Lymphocytes # 1.7 10^3/uL (1.5-6.5); Lymphocytes % 22.7 %; Mean Corpuscular HGB Conc 32.7 g/dL (30.0-36.0); Mean Corpuscular Hemoglobin 28.9 pg (28.0-34.0); Mean Corpuscular Volume 88.4 fL (81-99); Mean Platelet Volume 10.5 fL (7.4-10.4); Monocytes # 0.5 10^3/uL (0.2-0.9); Monocytes % 6.3 %; Neutrophils # 4.4 10^3/uL (1.8-8.0); Neutrophils % 58.9 %; Nucleated Red Blood Cells % 0 %; Platelet Count 252 10^3/cmm (130-400); Red Blood Count 4.74 10^6/uL (4.1-5.3); Red Cell Distribution Width 12.6 % (12.1-15.1); White Blood Count 7.5 10^3/uL (4.5-13.0)
[2020-03-06] MEDS: ondansetron 2 mg/ML SDV 2 mL 4 MG IVP (08:59)
[2020-03-06] MEDS: sodium chloride 0.9% 1,000 ML 999 ML IV (08:59)
[2020-03-06 09:02] LABS: Bilirubin Urine 1+ (NEGATIVE); Blood Urine Neg (Negative); Glucose Urine UA Norm (Normal); Ketones Urine 2+ (Negative); Leukocyte Esterase Urine Negative (Negative); Nitrate Urine Negative (Negative); Protein Urine Neg (Negative); Urine Appearance Clear (CLEAR); Urine Color Yellow (Yellow); Urobilinogen Urine Norm (Negative)
[2020-03-06 09:18] LABS: Alanine Aminotransferase 12 U/L (0-33); Albumin Level 4.5 g/dL (3.5-5.2); Alkaline Phosphatase 40 IU/L (35-105); Anion Gap 18.4 (5-19); Aspartate Amino Transferase 11 U/L (0-32); Blood Urea Nitrogen 13 mg/dL (6-20); Calcium 10.2 mg/dL (8.5-10.5); Carbon Dioxide 21 mmol/L (22-29); Chloride 105 mmol/L (98-107); Creatinine Clr Calc Pharmacy 157.1401; Glomerular Filtration Rate 157.3 mL/min (90-130); Glucose 93 mg/dL (65-115); Lipase 18 U/L (13-60); Osmolality Calculated 288 mOsm/kg (285-295); Potassium 3.4 mmol/L (3.5-5.1); Sodium 141 mmol/L (136-145); Total Bilirubin 1.9 mg/dL (0.15-1.2); Total Protein 7.5 g/dL (6.6-8.7)
--- NOTE | 2020-03-06 09:20 | US_ITS ---
WS: [id number] ABDOMINAL ULTRASOUND LIMITED REASON FOR VISIT: right side abd pain TECHNIQUE: Grayscale and Doppler ultrasound examination of the abdomen. FINDINGS: Pancreas: Normal Abdominal aorta and IVC: Normal Liver: Liver measures 13.9 cm in length. Normal hepatopedal portal circulation. Gallbladder: Gallbladder wall thickness measures 0.2 mm. No stones. The common bile duct measured 0.3 3 cm. Right kidney: Right kidney measures 11.1 cm x 4.2 cm x 3.8 cm. Right kidney cortex measures 1.3 cm. N o hydronephrosis no stones The appendix is identified and is noncompressible and is tender. No periappendiceal fluid is seen. US/US abdomen limited [id number] IMPRESSION: The right upper quadrant ultrasound is normal. The appendix is visualized slightly distended and tender no other evidence of i nflammatory changes.
[2020-03-06] MEDS: metoclopramide 5 mg/mL SDV 2 mL 10 MG IVP (09:35)
[2020-03-06 09:38] VITALS: BP 101/71; PULSE 82; O2SAT 100
--- NOTE | 2020-03-06 09:38 | PC.NURSE ---
portable ultrasound at bedside
--- NOTE | 2020-03-06 10:06 | PC.NURSE ---
pt nausea much improved after last anti-emetic medication administration
--- NOTE | 2020-03-06 10:42 | CT_ITS ---
WS: [id number] CT abdomen pelvis w con* [id number] REASON FOR EXAM: right lower quad pain, concern appendicitis IV CONTRAST ADMINISTERED: Omnipaque 300 95 mL TOTAL EXAM DLP: 522.[address] scans at [facility] use at least one of these dose optimization techniques: automat ed exposure control; mA and/or kV adjustment per patient size (includes targeted exams where dose is matched to clinical indication); or iterative reconstruction. FINDINGS: The lower lung mcgregor were normal. The liver show normal appearance with normal enhancement. The gallbladder was normal no stones are seen. The pancreas showed normal appearance. The spleen was of normal size show normal appearance. The stomach was normal. Both kidneys were within normal limits. No masses hydronephrosis or stones. The cecum and ascending colon were normal the appendix was normal not distended. The small bowel patterns were normal Left: Show normal appearance The uterus was of normal size or is fluid in the cul-de-sac area and there is a 4.4 cm cystic lesion in the right ovary. The rectosigmoid was normal. The lumbar pelvis bony structures were normal as well as the lumbar spine. CT/CT abdomen pelvis w con* [id number] IMPRESSION: Normal appendix The right ovarian cyst Para appendiceal fluid is seen on the right extends in the cul-de-sac.
[2020-03-06] MEDS: iohexol 300 mg/mL 100 mL Btl IV (11:38)
--- NOTE | 2020-03-06 11:42 | PC.NURSE ---
pt back from CT
[2020-03-06 12:10] VITALS: BP 119/72; PULSE 92; O2SAT 99
== END 2020-03-06 12:10 | disposition home or self-care (01) ==
PROVIDERS: Emergency Provider Nurse Practitioner Family
DX: N83.201 Unspecified ovarian cyst, right side (principal)
CPT/HCPCS: 12345; 74177; 76705; 80053; 81003; 81025; 83690; 85025; 96361; 96374; 96375; 99283; J2405; J2765; J7030; Q9967

== ENCOUNTER → 2020-04-04 18:00 | Outpatient (BNVA) | payer BC, SELFPAY | PROVIDERS: Visit Provider Nurse Practitioner Family | DX: R30.0 Dysuria (principal) | CPT/HCPCS: 81000; 87491; 87591; 87661 ==